=== PATIENT | female | born 1955 | race Caucasian/White ===

== ENCOUNTER 2016-12-01 11:05 | Day surgery (SDC) | payer BC, MEDICAID ==
[~2016-12-01] VITALS: Ht 162.6 cm; Wt 96.4 kg
[~2016-12-01 11:05] MED LIST: ADVAIR HFA 230-12 GM INH; AMBIEN5 MG PO; AVANDIA8 MG PO; BUSPIRONE HCL30 MG PO; CYMBALTA60 MG PO; GLUCOPHAGE1000 MG PO; LEVAQUIN500 MG PO; LEVEMIR100 U/M1 SC; LOTENSIN5 MG PO; LYRICA150 MG PO; METOPROLOL TAR100 M1 PO; NEXIUM40 MG PO; NUCYNTA50 MG PO; PRAVACHOL20 MG PO; REQUIP5 MG PO; SOMA350 MG PO; VALIUM 2 MG TAB2 MG PO
[2016-12-01 14:04] LABS: HEMATOCRIT 42.4 % (36.0-48.0); HEMOGLOBIN 14.2 g/dL (12-16); MCH 28.5 pg (26.0-34.0); MCHC 33.5 g/dL (31.0-37.0); MCV 85.1 fL (80.0-100.0); RBC 4.98 10x6/uL (4.00-5.40); RDW 13.1 % (11.5-14.5); WBC 10.2 10x3/uL (4.8-10.8)
[2016-12-01 14:14] LABS: CARBON DIOXIDE 29.9 mmol/L (21.0-32.0); CREATININE - SERUM 0.9 mg/dL (0.6-1.3); POTASSIUM - SERUM 4.9 mmol/L (3.5-5.1)
[2016-12-01] MEDS ORDERED: HUMALOG 30100 UNITS/ SC (14:20)
[2016-12-01 14:26] VITALS: BP 137/99; Ht 162.6 cm; Wt 96.4 kg
--- NOTE | 2016-12-01 16:38 | NUR ---
1610- PT RECEIVED SITTING UP IN BED WITH HOB ELEVATED. VSS. AWAKE AND ALERT. FULL LIQUIDS OFFERED. 1630- PT UP OOB TO BR WITH DIARRHEA (REPORTS CROHN'S DISEASE). VOIDED WITHOUT DIFFICULTY. 1635-IV D/C'D, PT TOLERATED. CATHETER INTACT.
--- NOTE | 2016-12-01 17:37 | NUR ---
1720- DISCHARGE INSTRUCTIONS COMPLETED, PT VERBALIZED UNDERSTANDING. PAPERWORK SIGNED 1725- DISCHARGED VIA WHEELCHAIR WITH FAMILY.
--- NOTE | 2016-12-05 13:02 | OP ---
PATIENT NAME: YASMEEN HILLIARD MEDICAL RECORD: [id number] :55 LOCATION:D.OPS ADMISSION DATE: SURGEON: JAMES HEIN DO DATE OF OPERATION: 12/01/2016 PROCEDURE: EGD with biopsies. SCOPE: Olympus video gastroscope. MEDICATIONS: Propofol 160 mg IV per anesthesia. INDICATIONS: Epigastric pain, dysphagia, GERD, nausea. FINDINGS: Informed consent was given. The patient was made comfortable with the above medication. After reaching an adequate level of sedation by slow IV push, the patient was placed on her left side. The endoscope was then advanced under direct visualization through the mouth down to the level of the second portion of the duodenum. The upper, middle, and distal thirds of the esophagus appeared normal. The GE junction was widely patent. The endoscope was advanced in the stomach and retroflexed to view the cardia. There was a small sliding hiatal hernia present involving the cardia. Scope was then advanced down towards the antrum and prepyloric region. There were patchy areas of granularity and erythema consistent with possible gastritis. Random biopsies were taken from the antrum, incisura and body of the stomach and sent for histology and to rule out H. pylori. Scope was advanced down into the duodenum where the bulb and second portion of the duodenum appeared normal. The scope was then withdrawn from the patient. The patient tolerated the procedure well and there were no complications. IMPRESSION: 1. Sliding hiatal hernia. 2. Possible gastritis with biopsies taken. PLAN AND RECOMMENDATIONS: 1. Discharge home when recovery parameters are met. 2. Continue current medications. 3. Continue current diet and reflux precautions. 4. Consider gastric emptying study if ongoing nausea and epigastric pain. 5. No further workup for dysphagia as this has resolved since her thyroidectomy. TRANSINT:[id number] Voice Confirmation ID: [id number] DOCUMENT ID: [id number] JAMES HEIN DO at 1302 CC: [id number] DICTATION DATE: 12/01/16 160 PROJECT PROGRAM MANAGER: 12/01/162058 [facility] 12/01/16 [place] [id number]
== END 2016-12-01 17:25 | disposition home or self-care (01) ==
LOC: D.OPS 11:05
PROVIDERS: Anesthesiology
DX: R13.10 Dysphagia, unspecified (principal); K21.9 Gastro-esophageal reflux disease without esophagitis; K44.9 Diaphragmatic hernia without obstruction or gangrene

== ENCOUNTER → 2017-01-26 11:28 | Outpatient (CLI) | payer BC, MEDICAID ==
[2016-12-01 14:26] VITALS: BMI 36.4
[~2017-01-26 11:28] MED LIST changes: +HUMALOG 30100 UNITS/ SC
== END | disposition home or self-care (01) ==
LOC: D.NM 11:28
DX: R13.10 Dysphagia, unspecified (principal); K21.9 Gastro-esophageal reflux disease without esophagitis; R11.0 Nausea; R10.13 Epigastric pain

== ENCOUNTER → 2017-03-14 11:29 | Outpatient (CLI) | payer BC, MEDICAID ==
[2016-12-01 14:26] VITALS: BMI 36.4
[2017-03-14 12:48] LABS: ALBUMIN 3.8 g/dL (3.4-5.0); BILIRUBIN - DIRECT 0.09 mg/dL (0.00-0.30); BILIRUBIN - INDIRECT 0.15 mg/dL (0.00-1.00); BILIRUBIN - TOTAL 0.24 mg/dL (0.2-1.3); PROTEIN - SERUM 7.9 g/dL (6.4-8.2)
== END | disposition home or self-care (01) ==
LOC: D.US 11:29
PROVIDERS: Internal Medicine Gastroenterology
DX: K76.0 Fatty (change of) liver, not elsewhere classified (principal)

== ENCOUNTER 2017-04-05 11:45 | Day surgery (SDC) | payer BC, MEDICAID ==
[~2017-04-05] VITALS: Ht 162.6 cm; Wt 95.9 kg
[2017-04-05] MEDS ORDERED: NORVASC5 MG PO (12:43)
[2017-04-05] MEDS ORDERED: VITAMIN D250000 UNIT PO (12:44)
[2017-04-05] MEDS ORDERED: OYST-CAL-5001 TAB PO (12:44)
[2017-04-05] MEDS ORDERED: ZYRTEC10 MG PO (12:45)
[2017-04-05] MEDS ORDERED: ZANAFLEX4 MG PO (12:45)
[2017-04-05] MEDS ORDERED: PRAVACHOL40 MG PO (12:46)
[2017-04-05] MEDS ORDERED: NEURONTIN800 MG PO (12:47)
[2017-04-05] MEDS ORDERED: LEVOTHYROXINE75 MCG PO (12:47)
[2017-04-05] MEDS ORDERED: FUROSEMIDE40 MG PO (12:47)
[2017-04-05] MEDS ORDERED: REQUIP1 MG PO (12:47)
[2017-04-05] MEDS ORDERED: BENTYL 20 MG TA20 MG PO (12:50)
[2017-04-05] MEDS ORDERED: REGLAN5 MG PO (12:50)
[2017-04-05 12:51] VITALS: Ht 162.6 cm; Wt 95.9 kg
[2017-04-05 13:52] LABS: CALCIUM 9.2 mg/dL (8.5-10.1); CARBON DIOXIDE 26.2 mmol/L (21.0-32.0); CREATININE - SERUM 1.2 mg/dL (0.6-1.3); POTASSIUM - SERUM 4.2 mmol/L (3.5-5.1)
[2017-04-05 14:02] LABS: HEMATOCRIT 41.4 % (36.0-48.0); HEMOGLOBIN 13.9 g/dL (12-16); MCH 30.2 pg (26.0-34.0); MCHC 33.6 g/dL (31.0-37.0); MCV 89.8 fL (80.0-100.0); RBC 4.61 10x6/uL (4.00-5.40); RDW 14.4 % (11.5-14.5); WBC 8.6 10x3/uL (4.8-10.8)
--- NOTE | 2017-04-05 15:21 | NUR ---
1500 BACK FROM COLONOSCOPY. PASSED AIR. SLEEPY RESP EVEN AND NONLABORED.REPORT TO DOUGLAS LEAL.
--- NOTE | 2017-04-06 11:40 | OP ---
PATIENT NAME: YASMEEN HILLIARD MEDICAL RECORD: [id number] :55 LOCATION:D.OPS ADMISSION DATE: SURGEON: JAMES HEIN DO DATE OF OPERATION: 04/05/2017 PROCEDURE: Colonoscopy with polypectomy. INDICATIONS: Altered bowel function. SCOPE: Olympus video pediatric colonoscope. MEDICATIONS: Propofol 450 mg IV per anesthesia. WITHDRAWAL TIME: 23 minutes. ESTIMATED BLOOD LOSS: Minimal. COMPLICATIONS: None. FINDINGS: Informed consent was given. The patient was made comfortable with the above medication. After reaching an adequate level of sedation by slow IV push, the patient was placed on her left side. A digital rectal examination was performed and was normal. The endoscope was then advanced under direct visualization through the rectum to the cecum with visualization of the appendiceal orifice and ileocecal valve. The scope was slowly withdrawn and the mucosa was carefully examined. The prep quality was good in the left side of the colon, fair in the mid colon and poor to fair in the right side of the colon. Irrigation and aspiration was performed as extensively as possible, but there was still stool in the right side of the colon which would not clear with washing. There were no obvious large polyps visualized on the right side of the examination. There were 2 sub-centimeter polyps ranging in size from 6-7 mm in diameter located in the ascending colon. They were benign-appearing and sessile. They were removed in 1 piece using hot snare and completely retrieved. There was a single transverse polyp which measured approximately 8 mm in size. It was benign appearing and sessile and was removed in 1 piece and completely retrieved using hot snare. Two benign-appearing and sessile polyps were located in the descending colon. They ranged in size from 8-9 mm in diameter. They were removed in 1 piece and completely retrieved with a hot snare. In the rectal polyp, there was a single benign-appearing sessile polyp, which was likely hyperplastic. It was benign-appearing and measured approximately 4 mm in size. It was removed in 1 piece with a hot snare and completely retrieved. Retroflexion was performed in the rectum with some small nonbleeding internal hemorrhoids visualized. There was mild diverticulosis of the entire colon visualized on this examination. Scope was withdrawn from the patient. The patient tolerated the procedure well and there were no complications. IMPRESSION: 1. Multiple polyps as described above, removed using hot snares. 2. Mild diverticulosis of the entire colon. 3. Small nonbleeding internal hemorrhoids. PLAN AND RECOMMENDATIONS: 1. Discharge home when recovery parameters are met. 2. Follow up biopsy specimen results. 3. High fiber diet. OPERATIVE REPORT [id number] YASMEEN HILLIARD 4. Continue current medications. Recall colonoscopy in 3 years regarding the number and types of polyps removed on today's date. TRANSINT:[id number] Voice Confirmation ID: [id number] DOCUMENT ID: [id number] JAMES HEIN DO at 1140 CC: [id number] DICTATION DATE: 04/05/17 1450 BIOSTATISTICS TEACHER: 04/05/172054 [facility] 04/05/17 [id number] [place] [address]
== END 2017-04-05 16:35 | disposition home or self-care (01) ==
LOC: D.OPS 11:45
PROVIDERS: Anesthesiology
DX: D12.2 Benign neoplasm of ascending colon (principal); D12.3 Benign neoplasm of transverse colon; D12.4 Benign neoplasm of descending colon; K57.30 Diverticulosis of large intestine without perforation or abscess without bleeding; K64.8 Other hemorrhoids; J45.909 Unspecified asthma, uncomplicated; I10 Essential (primary) hypertension; E11.9 Type 2 diabetes mellitus without complications; K44.9 Diaphragmatic hernia without obstruction or gangrene; G47.33 Obstructive sleep apnea (adult) (pediatric); J44.9 Chronic obstructive pulmonary disease, unspecified; K50.90 Crohn's disease, unspecified, without complications; G20 Parkinson's disease; G35 Multiple sclerosis

== ENCOUNTER 2017-12-11 17:51 | Inpatient (IN) | payer BC, MEDICAID ==
[~2017-12-11] VITALS: Ht 162.6 cm; Wt 102.2 kg
--- NOTE | ~2017-12-11 | EC ---
PATIENT:YASMEEN HILLIARD DATE OF SERVICE: 12/11/17 SEX: F MEDICAL RECORD: [id number] DATE OF : 55 LOCATION:D.MS [facility] AGE OF PATIENT: 62 ADMISSION DATE: 12/11/17 REFERRING PHYSICIAN: INTERPRETING PHYSICIAN: TIO RUIZ MD ECHOCARDIOGRAM REPORT ECHO CHARGES 4 ECHO COMPLETE Date: 12/14 CLINICAL DIAGNOSIS: MITRAL REGURG ECHOCARDIOGRAPHIC MEASUREMENTS (adult normal given) AC root (d.<3.7cm) 3.6 cm LV Septum d (<1.2 cm> 1.2 cm Valve Excursion 1.5 cm LV Septum (systole) 1.5 cm Left Atria (s.<4.0cm> 3.2 cm LVPW d(<1.2cm) 1.3 cm RV (d.<2.3cm) 4.9 cm LVPW (sytole) 1.7 cm LV diastole(<5.6CM) 4.5 cm MV E-F(>70mm/sec) cm LV systole 3.4 cm LVOT Diameter 1.8 cm MV exc.(>10mm) 1.4 cm Est.ejection fraction (50-75%) % DOPPLER: LVIT cm/sec A 102 cm/sec E 94.0 cm/sec LA cm/sec RVSP 33 mmHg LVOT 121 cm/sec AOP1/2T m/s Asc. Ao 173 cm/sec RVOT 60 cm/sec RA cm/sec PA 98 cm/sec AV Gradient Peak 11.97mmHg AV Mean 6.29 mmHg AV Area 1.9 cm MV Gradient Peak 4.37 mmHg MV Mean 1.29 mmHg MV Area cm COMMENTS: Air Hammer Stripper: 2 KRISSY BAL Enrichment Specialist: 3 Dr. Painter TAPE# PACS Pericardial Effusion N DATE OF SERVICE: Adequate 2D echo, color flow and spectral Doppler, and M-mode. Borderline LVH. LV internal dimension is normal. Wall motion is normal. EF is greater than 55%. Aortic valve is tricuspid without stenosis by Doppler interrogation. Left atrium is normal at 3.2 cm. Mitral valve shows no prolapse. Mild MR. Right-sided chambers are normal. Mild TR. TRANSINT:[id number] Voice Confirmation ID: [id number] DOCUMENT ID: [id number] ECHOCARDIOGRAM REPORT [id number] YASMEEN HILLIARD TIO RUIZ MD at 0804 CC: [id number] DICTATION DATE: 12/14/17 1645 CHEMICAL EQUIPMENT SALES ENGINEER: 12/14/17 1907 ADM IN [facility] [address] [id number]
--- NOTE | ~2017-12-11 | CN ---
PATIENT NAME:PHOEBE HILLIARD MEDICAL RECORD: [id number] : 55 LOCATION:D.MS [id number] ADMIT DATE: 12/11/17 ACCOUNT: [id number] CONSULTING PHYSICIAN: TIO RUIZ MD REFERRING PHYSICIAN: AUGUSTO TURK MD DATE OF CONSULTATION: 12/13/2017 Cardiology Consultation HISTORY OF PRESENT ILLNESS: Phoebe Hilliard is a 62-year-old lady with cardiovascular history, who previously saw Dr. Bernard for leaky valve. She is admitted with chest pain, dyspnea, this has improved markedly since admission and current treatment. Cardiac enzymes are negative. ECG shows left axis, certainly no acute changes. She had been doing fairly well, but lately going through divorce after 41 years and has been under more stress and thinks her symptoms may be related to this. We are asked to see her concerning her cardiovascular status. PAST MEDICAL HISTORY: Includes: 1. History of obstructive pulmonary disease, O2 dependent. 2. Parkinson disease. 3. Multiple sclerosis. 4. 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 SOCIAL HISTORY: She is nonsmoker, nondrinker. Lives independently. Recently divorce. She is able to take care of her ADLs. MEDICATIONS: Prior to admit include Zyrtec 10 every day, Bentyl 20 t.i.d., Zanaflex 4 b.i.d., benazepril 40 every day, metoprolol 100 q.h.s., pravastatin 40 every day, amlodipine 5 every day, Valium 10 t.i.d. p.r.n., Lexapro 10 every day, Neurontin 800 t.i.d., [place] 5/325 as needed, Requip 1 q.h.s., Nucynta 50 q.h.s., Lasix 40 every day, Reglan 5 every day, insulin per scale. ALLERGIES: PENICILLIN, SULFA, LATEX, ASPIRIN, PSEUDOEPHEDRINE. REVIEW OF SYSTEMS: The patient reports easy bruising but reports no swollen glands. The patient reports no fever, no night sweats, no significant weight gain, no significant weight loss. No significant exercise tolerance. The patient reports no dry eyes, no irritation, no vision change. Patient reports no difficulty hearing and no ear pain. Patient reports no frequent nose bleeds or nose and sinus problems. Patient reports on arm pain on exertion. No shortness of breath while lying down. No history of heart murmur. Patient reports no cough, no wheezing or coughing up blood. Patient reports no abdominal pain, no vomiting. Normal appetite. No diarrhea and not vomiting blood. No nausea and no constipation. Patient reports no incontinence. No difficulty urinating. No hematuria. No increased frequency. Patient reports no muscle aches. No weakness, no arthralgias, no back pain. No swelling of the extremities. Patient reports no abnormal mole, no jaundice, no rashes. Reports no loss of consciousness. No weakness and no numbness. No seizures, dizziness, or headaches. The patient reports no depression, no sleep disturbance, feeling safe in a relationship and no alcohol abuse. Patient reports on fatigue. Reports no runny nose or sinus pressure. No itching, no hives, and no frequent sneezing. PHYSICAL EXAMINATION: CONSULT REPORT [id number] HILLIARDLAYA MCLEANEmma Christie GENERAL: Please female in no acute distress, obvious tremor at rest. VITAL SIGNS: Blood pressure 156/97, pulse 86 and regular. HEENT: Normocephalic, atraumatic. NECK: No bruits noted. HEART: Regular, II/ systolic ejection murmur. LUNGS: Good air excursion. ABDOMEN: Soft, nontender. EXTREMITIES: Pulses are 2+ with no edema. DIAGNOSTIC DATA: ECG shows left axis, no acute ST-T changes. IMPRESSION: Chest pain may be secondary to underlying current illness. Enzymes negative at this point. We will check echo study given history of valvular dysfunction, although murmur does not sound significantly pathologic. Further recommendations based on clinical course. TRANSINT:[id number] Voice Confirmation ID: [id number] DOCUMENT ID: [id number] TIO RUIZ MD at 0804 CC: [id number] DICTATION DATE: 12/13/17 1323 PER DIEM NURSE: 12/13/17 1448 ADM IN [id number] [place] [address]
[~2017-12-11 17:51] MED LIST changes: +BENTYL 20 MG TA20 MG PO; +FUROSEMIDE40 MG PO; +LEVOTHYROXINE75 MCG PO; +NEURONTIN800 MG PO; +NORVASC5 MG PO; +OYST-CAL-5001 TAB PO; +PRAVACHOL40 MG PO; +REGLAN5 MG PO; +REQUIP1 MG PO; +VITAMIN D250000 UNIT PO; +ZANAFLEX4 MG PO; +ZYRTEC10 MG PO
[2017-12-11 19:15] LABS: BASOPHILS 0.5 % (0-2); HEMATOCRIT 39.5 % (36.0-48.0); HEMOGLOBIN 13.2 g/dL (12-16); IMMATURE GRANULOCYTES 0.5 % (0-5); LYMPHOCYTES 27.4 % (15-50); MCH 29.7 pg (26.0-34.0); MCHC 33.4 g/dL (31.0-37.0); MEAN PLATELET VOLUME 11.6 fL (7.4-10.4); MONOCYTES 5.6 % (2-11); PLATELET COUNT 170 10x3/uL (130-400); RBC 4.44 10x6/uL (4.00-5.40); RDW 14.1 % (11.5-14.5); WBC 9.1 10x3/uL (4.8-10.8)
[2017-12-11 19:38] LABS: ALBUMIN 3.4 g/dL (3.4-5.0); ALKALINE PHOSPHATASE 106 U/L (46-116); ALT (SGPT) 37 U/L (10-68); BILIRUBIN - TOTAL 0.17 mg/dL (0.2-1.3); CALCIUM 8.8 mg/dL (8.5-10.1); CARBON DIOXIDE 24.4 mmol/L (21.0-32.0); CHLORIDE - SERUM 102 mmol/L (98-107); CREATININE - SERUM 1.2 mg/dL (0.6-1.3); POTASSIUM - SERUM 3.7 mmol/L (3.5-5.1); PROTEIN - SERUM 8.1 g/dL (6.4-8.2); SODIUM 140 mmol/L (136-145); UREA NITROGEN 16 mg/dL (7-18); eGFR NON AFRICAN AMERICAN 48 mL/min (90-120)
[2017-12-11 19:50] LABS: CALC OSMOLALITY 283 mosm/kg (275-300); CKMB 0.3 U/L (0.0-3.6); CREATINE KINASE 218 UL (21-215); GLUCOSE 176 mg/dL (74-106); MAGNESIUM - SERUM 1.6 mg/dL (1.8-2.4); TROPONIN-I < 0.017 ng/mL (0.000-0.060)
[2017-12-11 20:34] LABS: APPEARANCE HAZY (CLEAR); BILIRUBIN NEGATIVE (NEGATIVE); COLOR YELLOW (YELLOW); GLUCOSE NEGATIVE (NEGATIVE); KETONE NEGATIVE (NEGATIVE); NITRITE NEGATIVE (NEGATIVE); PROTEIN NEGATIVE (NEGATIVE); RED CELLS - URINE 0-5 /hpf (0-5); UROBILINOGEN NORMAL (NORMAL); WHITE CELLS - URINE 25-50 /hpf (0-5)
[2017-12-11 20:35] LABS: BACTERIA MANY /hpf (NONE SEEN); EPITHELIAL CELLS 0-5 /hpf (0-5)
[2017-12-11 22:09] LABS: CREATINE KINASE 191 UL (21-215); TROPONIN-I < 0.017 ng/mL (0.000-0.060)
[2017-12-12] MEDS ORDERED: METOPROLOL TART50 MG PO (01:35)
[2017-12-12] MEDS ORDERED: [UNRECOGNIZED DRUG - OTHER] PO (01:40)
[2017-12-12] MEDS ORDERED: VIT D PO (01:40)
[2017-12-12] MEDS ORDERED: LEVEMIR100 U/M1 SC (01:47)
[2017-12-12] MEDS ORDERED: NOVOLOG100 U/M1 SC (01:49)
[2017-12-12] MEDS ORDERED: VALIUM10 MG PO (01:50)
[2017-12-12] MEDS ORDERED: LEXAPRO20 MG PO (01:51)
[2017-12-12] MEDS ORDERED: NUCYNTA50 MG PO (01:52)
[2017-12-12] MEDS ORDERED: HYDROCODON-ACE1 EAC7 PO (01:53)
[2017-12-12] MEDS ORDERED: AMITIZA8 MCG PO (01:53)
[2017-12-12] MEDS ORDERED: FLUTICASONE PRO16 GM NASAL (01:54)
[2017-12-12] MEDS ORDERED: NORVASC5 MG PO (01:54)
[2017-12-12] MEDS ORDERED: VOLTAREN100 GM TOPICAL (01:56)
[2017-12-12] MEDS ORDERED: PREMARIN45 GM VG (01:57)
[2017-12-12 04:31] VITALS: BP 108/58
[2017-12-12 05:03] LABS: BASOPHILS 0.5 % (0-2); EOSINOPHILS 2.2 % (0-7); HEMATOCRIT 34.9 % (36.0-48.0); HEMOGLOBIN 11.4 g/dL (12-16); IMMATURE GRANULOCYTES 0.6 % (0-5); LYMPHOCYTES 36.1 % (15-50); MCH 29.3 pg (26.0-34.0); MCHC 32.7 g/dL (31.0-37.0); MCV 89.7 fL (80.0-100.0); MEAN PLATELET VOLUME 11.5 fL (7.4-10.4); MONOCYTES 4.5 % (2-11); NEUTROPHILS 56.1 % (40-80); PLATELET COUNT 138 10x3/uL (130-400); RBC 3.89 10x6/uL (4.00-5.40); RDW 14.2 % (11.5-14.5)
[2017-12-12 05:09] LABS: WBC 6.5 10x3/uL (4.8-10.8)
[2017-12-12 05:31] LABS: CALC OSMOLALITY 289 mosm/kg (275-300); CALCIUM 8.4 mg/dL (8.5-10.1); CARBON DIOXIDE 28.4 mmol/L (21.0-32.0); CHLORIDE - SERUM 104 mmol/L (98-107); CKMB 0.2 U/L (0.0-3.6); CREATINE KINASE 155 UL (21-215); GLUCOSE 190 mg/dL (74-106); POTASSIUM - SERUM 3.9 mmol/L (3.5-5.1); SODIUM 142 mmol/L (136-145); UREA NITROGEN 18 mg/dL (7-18); eGFR NON AFRICAN AMERICAN 59 mL/min (90-120)
[2017-12-12 05:37] LABS: TROPONIN-I < 0.017 ng/mL (0.000-0.060)
[2017-12-12 07:45] VITALS: BP 135/81; BMI 37.4
[2017-12-12 08:10] VITALS: BP 129/80
[2017-12-12 09:41] LABS: CKMB 0.6 U/L (0.0-3.6); CREATINE KINASE 148 UL (21-215)
[2017-12-12 09:42] LABS: TROPONIN-I < 0.017 ng/mL (0.000-0.060)
[2017-12-12 11:41] VITALS: BP 143/93
[2017-12-12 12:54] VITALS: Ht 162.6 cm; Wt 102.2 kg
[2017-12-12 16:08] VITALS: BP 143/82
[2017-12-12 20:00] VITALS: BP 128/79
[2017-12-13 04:00] VITALS: BP 122/68
[2017-12-13 06:16] LABS: BASOPHILS 0.8 % (0-2); EOSINOPHILS 2.6 % (0-7); HEMATOCRIT 32.7 % (36.0-48.0); HEMOGLOBIN 10.7 g/dL (12-16); IMMATURE GRANULOCYTES 0.8 % (0-5); LYMPHOCYTES 34.7 % (15-50); MCH 29.3 pg (26.0-34.0); MCHC 32.7 g/dL (31.0-37.0); MCV 89.6 fL (80.0-100.0); MONOCYTES 5.2 % (2-11); NEUTROPHILS 55.9 % (40-80); PLATELET COUNT 106 10x3/uL (130-400); RBC 3.65 10x6/uL (4.00-5.40)
[2017-12-13 06:40] LABS: ALBUMIN 2.7 g/dL (3.4-5.0); ALKALINE PHOSPHATASE 69 U/L (46-116); ALT (SGPT) 32 U/L (10-68); BILIRUBIN - TOTAL 0.23 mg/dL (0.2-1.3); CALC OSMOLALITY 282 mosm/kg (275-300); CALCIUM 8.2 mg/dL (8.5-10.1); CARBON DIOXIDE 26.8 mmol/L (21.0-32.0); CHLORIDE - SERUM 104 mmol/L (98-107); CREATININE - SERUM 0.8 mg/dL (0.6-1.3); GLUCOSE 153 mg/dL (74-106); POTASSIUM - SERUM 3.7 mmol/L (3.5-5.1); PROTEIN - SERUM 6.6 g/dL (6.4-8.2); SODIUM 141 mmol/L (136-145); eGFR NON AFRICAN AMERICAN 77 mL/min (90-120)
[2017-12-13 06:41] LABS: UREA NITROGEN 11 mg/dL (7-18)
[2017-12-13 09:21] VITALS: BP 154/98
[2017-12-13 12:31] VITALS: BP 156/97
[2017-12-13 16:53] VITALS: BP 143/90
[2017-12-13 20:00] VITALS: BP 139/74
[2017-12-14] VITALS: BP 136/72
[2017-12-14 04:00] VITALS: BP 133/76
[2017-12-14 05:55] LABS: BASOPHILS 0.5 % (0-2); EOSINOPHILS 2.7 % (0-7); HEMATOCRIT 32.1 % (36.0-48.0); HEMOGLOBIN 10.6 g/dL (12-16); LYMPHOCYTES 30.7 % (15-50); MCH 29.5 pg (26.0-34.0); MCV 89.4 fL (80.0-100.0); MEAN PLATELET VOLUME 10.8 fL (7.4-10.4); MONOCYTES 5.3 % (2-11); NEUTROPHILS 59.8 % (40-80); PLATELET COUNT 103 10x3/uL (130-400); RBC 3.59 10x6/uL (4.00-5.40); RDW 14.2 % (11.5-14.5); WBC 5.8 10x3/uL (4.8-10.8)
[2017-12-14 06:23] LABS: ALBUMIN 2.8 g/dL (3.4-5.0); ANION GAP 11.7 mmol/L (8-16); BILIRUBIN - TOTAL 0.2 mg/dL (0.2-1.3); CALCIUM 8.1 mg/dL (8.5-10.1); CREATININE - SERUM 0.9 mg/dL (0.6-1.3); POTASSIUM - SERUM 3.7 mmol/L (3.5-5.1); PROTEIN - SERUM 6.5 g/dL (6.4-8.2)
[2017-12-14 07:51] VITALS: BP 171/98
[2017-12-14 12:24] VITALS: BP 134/83
[2017-12-14 15:57] VITALS: BP 148/70; BP 148/90
[2017-12-14 19:36] VITALS: BP 143/85
[2017-12-15] VITALS: BP 133/82
[2017-12-15 04:00] VITALS: BP 126/77
[2017-12-15 06:20] LABS: BASOPHILS 0.7 % (0-2); EOSINOPHILS 2.8 % (0-7); HEMATOCRIT 34.1 % (36.0-48.0); HEMOGLOBIN 11.3 g/dL (12-16); IMMATURE GRANULOCYTES 0.9 % (0-5); LYMPHOCYTES 27.8 % (15-50); MCH 29.9 pg (26.0-34.0); MCHC 33.1 g/dL (31.0-37.0); MCV 90.2 fL (80.0-100.0); MEAN PLATELET VOLUME 11.8 fL (7.4-10.4); MONOCYTES 4.4 % (2-11); NEUTROPHILS 63.4 % (40-80); PLATELET COUNT 120 10x3/uL (130-400); RBC 3.78 10x6/uL (4.00-5.40); RDW 14.3 % (11.5-14.5); WBC 5.7 10x3/uL (4.8-10.8)
[2017-12-15 06:51] LABS: ALBUMIN 2.9 g/dL (3.4-5.0); ANION GAP 10.2 mmol/L (8-16); BILIRUBIN - TOTAL 0.2 mg/dL (0.2-1.3); CALCIUM 8.2 mg/dL (8.5-10.1); CARBON DIOXIDE 32.3 mmol/L (21.0-32.0); CREATININE - SERUM 0.9 mg/dL (0.6-1.3); POTASSIUM - SERUM 3.5 mmol/L (3.5-5.1); PROTEIN - SERUM 6.8 g/dL (6.4-8.2)
[2017-12-15 08:18] VITALS: BP 144/84
[2017-12-15 16:11] LABS: APPEARANCE CLEAR (CLEAR); BILIRUBIN NEGATIVE (NEGATIVE); COLOR YELLOW (YELLOW); GLUCOSE 100 mg/dL (NEGATIVE); KETONE NEGATIVE (NEGATIVE); NITRITE NEGATIVE (NEGATIVE); PROTEIN NEGATIVE (NEGATIVE); SPECIFIC GRAVITY 1.015 (1.005-1.020); UROBILINOGEN NORMAL (NORMAL)
[2017-12-15 16:13] LABS: EPITHELIAL CELLS 0-5 /hpf (0-5); RED CELLS - URINE 0-5 /hpf (0-5)
[2017-12-15 16:14] LABS: BACTERIA FEW /hpf (NONE SEEN); WHITE CELLS - URINE 0-5 /hpf (0-5)
[2017-12-15 19:57] VITALS: BP 123/70
[2017-12-16] VITALS: BP 117/71
[2017-12-16 04:00] VITALS: BP 136/62
[2017-12-16 05:42] LABS: BASOPHILS 0.5 % (0-2); EOSINOPHILS 2.8 % (0-7); HEMATOCRIT 35.1 % (36.0-48.0); HEMOGLOBIN 11.3 g/dL (12-16); IMMATURE GRANULOCYTES 0.9 % (0-5); LYMPHOCYTES 26.1 % (15-50); MCH 29.1 pg (26.0-34.0); MCHC 32.2 g/dL (31.0-37.0); MCV 90.5 fL (80.0-100.0); MEAN PLATELET VOLUME 11.3 fL (7.4-10.4); MONOCYTES 6.4 % (2-11); NEUTROPHILS 63.3 % (40-80); PLATELET COUNT 123 10x3/uL (130-400); RBC 3.88 10x6/uL (4.00-5.40); RDW 14.6 % (11.5-14.5); WBC 5.6 10x3/uL (4.8-10.8)
[2017-12-16 06:32] LABS: ANION GAP 11.9 mmol/L (8-16); BILIRUBIN - TOTAL 0.2 mg/dL (0.2-1.3); CALCIUM 8.2 mg/dL (8.5-10.1); CREATININE - SERUM 0.9 mg/dL (0.6-1.3); POTASSIUM - SERUM 3.9 mmol/L (3.5-5.1); PROTEIN - SERUM 6.6 g/dL (6.4-8.2)
[2017-12-16 09:30] VITALS: BP 159/85
[2017-12-16] MEDS ORDERED: LEVAQUIN750 MG PO (11:37)
== END 2017-12-16 16:00 | disposition home or self-care (01) | DRG 190 ==
LOC: D.ER 17:51 → D.MS 21:15 → D.EDHOLD 21:15 → D.MS 12-12 00:19
PROVIDERS: Family Medicine
DX: J44.0 Chronic obstructive pulmonary disease with (acute) lower respiratory infection (principal); J18.1 Lobar pneumonia, unspecified organism; N39.0 Urinary tract infection, site not specified; M35.1 Other overlap syndromes; K50.90 Crohn's disease, unspecified, without complications; J44.1 Chronic obstructive pulmonary disease with (acute) exacerbation; R53.1 Weakness; E11.43 Type 2 diabetes mellitus with diabetic autonomic (poly)neuropathy; E11.65 Type 2 diabetes mellitus with hyperglycemia; K31.84 Gastroparesis; Z79.4 Long term (current) use of insulin; G35 Multiple sclerosis; Z99.81 Dependence on supplemental oxygen; K21.9 Gastro-esophageal reflux disease without esophagitis; R07.9 Chest pain, unspecified; I25.10 Atherosclerotic heart disease of native coronary artery without angina pectoris

== ENCOUNTER 2017-12-23 17:40 | Emergency (ER) | payer BC, MEDICAID ==
[2017-12-12 12:54] VITALS: BMI 37.2
[~2017-12-23 17:40] MED LIST changes: +AMITIZA8 MCG PO; +FLUTICASONE PRO16 GM NASAL; +HYDROCODON-ACE1 EAC7 PO; +LEVAQUIN750 MG PO; +LEXAPRO20 MG PO; +METOPROLOL TART50 MG PO; +NOVOLOG100 U/M1 SC; +PREMARIN45 GM VG; +VALIUM10 MG PO; +VIT D PO; +VOLTAREN100 GM TOPICAL; +[UNRECOGNIZED DRUG - OTHER] PO
== END 2017-12-23 19:00 | disposition home or self-care (01) ==
LOC: D.ER 17:40
DX: S90.462A Insect bite (nonvenomous), left great toe, initial encounter (principal); W57.XXXA Bitten or stung by nonvenomous insect and other nonvenomous arthropods, initial encounter; Y93.89 Activity, other specified; Y92.89 Other specified places as the place of occurrence of the external cause

== ENCOUNTER 2018-02-08 18:38 | Emergency (ER) | payer BC, MEDICAID ==
[~2018-02-08] VITALS: Ht 162.6 cm; Wt 94.5 kg
[2018-02-08 19:29] VITALS: Ht 162.6 cm; Wt 94.5 kg
[2018-02-08 20:49] LABS: BASOPHILS 0.8 % (0-2); HEMATOCRIT 38.3 % (36.0-48.0); IMMATURE GRANULOCYTES 0.7 % (0-5); LYMPHOCYTES 34.1 % (15-50); MCH 30.2 pg (26.0-34.0); MCHC 33.9 g/dL (31.0-37.0); MCV 88.9 fL (80.0-100.0); MEAN PLATELET VOLUME 12.8 fL (7.4-10.4); MONOCYTES 4.5 % (2-11); NEUTROPHILS 57.9 % (40-80); RBC 4.31 10x6/uL (4.00-5.40); RDW 13.8 % (11.5-14.5); WBC 7.4 10x3/uL (4.8-10.8)
[2018-02-08 20:56] LABS: PLATELET COUNT 160 10x3/uL (130-400)
[2018-02-08 21:04] LABS: APTT 30.4 SECONDS (22.8-39.4); INR 1.03 (0.85-1.17); PROTIME 13.2 SECONDS (11.6-15.0)
[2018-02-08 21:11] LABS: ALBUMIN 3.6 g/dL (3.4-5.0); ALKALINE PHOSPHATASE 102 U/L (46-116); ALT (SGPT) 33 U/L (10-68); BILIRUBIN - TOTAL 0.24 mg/dL (0.2-1.3); CALC OSMOLALITY 286 mosm/kg (275-300); CALCIUM 8.1 mg/dL (8.5-10.1); CARBON DIOXIDE 26.9 mmol/L (21.0-32.0); CHLORIDE - SERUM 101 mmol/L (98-107); POTASSIUM - SERUM 3.7 mmol/L (3.5-5.1); SODIUM 137 mmol/L (136-145); UREA NITROGEN 12 mg/dL (7-18); eGFR NON AFRICAN AMERICAN 59 mL/min (90-120)
[2018-02-08 21:14] LABS: CREATINE KINASE 63 UL (21-215); TROPONIN-I < 0.017 ng/mL (0.000-0.060)
[2018-02-08 21:15] LABS: GLUCOSE 324 mg/dL (74-106)
[2018-02-08 21:35] LABS: APPEARANCE CLOUDY (CLEAR); BILIRUBIN NEGATIVE (NEGATIVE); COLOR YELLOW (YELLOW); GLUCOSE 1000 mg/dL (NEGATIVE); KETONE NEGATIVE (NEGATIVE); NITRITE POSITIVE (NEGATIVE); PROTEIN NEGATIVE (NEGATIVE); UROBILINOGEN NORMAL (NORMAL)
[2018-02-08 21:36] LABS: BACTERIA MANY /hpf (NONE SEEN); EPITHELIAL CELLS 0-5 /hpf (0-5); RED CELLS - URINE OCC /hpf (0-5)
[2018-02-09 00:55] VITALS: BP 145/93
== END 2018-02-09 00:55 | disposition other institution (70) ==
LOC: D.ER 18:38
PROVIDERS: Family Medicine
DX: G81.91 Hemiplegia, unspecified affecting right dominant side (principal); R47.81 Slurred speech; E11.9 Type 2 diabetes mellitus without complications; I10 Essential (primary) hypertension; G20 Parkinson's disease; G35 Multiple sclerosis

== ENCOUNTER 2019-10-10 01:37 | Emergency (ER) | payer BC, MEDICAID ==
[~2019-10-10] VITALS: Ht 162.6 cm; Wt 79.5 kg
[2019-10-10 01:43] VITALS: Ht 162.6 cm; Wt 79.5 kg
[2019-10-10 02:06] LABS: BASOPHILS 0.6 % (0-2); EOSINOPHILS 2.1 % (0-7); HEMATOCRIT 40.2 % (36.0-48.0); HEMOGLOBIN 13.6 g/dL (12-16); IMMATURE GRANULOCYTES 0.6 % (0-5); LYMPHOCYTES 32.5 % (15-50); MCH 28.3 pg (26.0-34.0); MCHC 33.8 g/dL (31.0-37.0); MCV 83.8 fL (80.0-100.0); MEAN PLATELET VOLUME 11.6 fL (7.4-10.4); MONOCYTES 4.6 % (2-11); NEUTROPHILS 59.6 % (40-80); PLATELET COUNT 191 10x3/uL (130-400); RDW 13.6 % (11.5-14.5); WBC 7.9 10x3/uL (4.8-10.8)
[2019-10-10 02:13] LABS: APTT 31.3 SECONDS (22.8-39.4); INR 1.13 (0.85-1.17); PROTIME 14.5 SECONDS (11.6-15.0)
[2019-10-10] MEDS ORDERED: PLAVIX75 MG PO (02:25)
[2019-10-10] MEDS ORDERED: LIPITOR40 MG PO (02:25)
[2019-10-10] MEDS ORDERED: PROTONIX40 MG PO (02:26)
[2019-10-10 02:28] LABS: ALBUMIN 3.3 g/dL (3.4-5.0); ALKALINE PHOSPHATASE 121 U/L (30-120); ALT (SGPT) 34 U/L (10-68); BILIRUBIN - TOTAL 0.58 mg/dL (0.2-1.3); CALCIUM 9.2 mg/dL (8.5-10.1); CARBON DIOXIDE 30.2 mmol/L (21.0-32.0); CHLORIDE - SERUM 98 mmol/L (98-107); CKMB 0.4 U/L (0.0-3.6); CREATINE KINASE 86 UL (21-215); CREATININE - SERUM 1.3 mg/dL (0.6-1.3); MAGNESIUM - SERUM 1.9 mg/dL (1.8-2.4); POTASSIUM - SERUM 3.4 mmol/L (3.5-5.1); PROTEIN - SERUM 8.3 g/dL (6.4-8.2); SODIUM 137 mmol/L (136-145); UREA NITROGEN 12 mg/dL (7-18); eGFR NON AFRICAN AMERICAN 44 mL/min (90-120)
[2019-10-10 02:30] LABS: CALC OSMOLALITY 293 mosm/kg (275-300); GLUCOSE 453 mg/dL (74-106); TROPONIN-I < 0.017 ng/mL (0.000-0.060)
[2019-10-10 05:15] VITALS: BP 128/90
== END 2019-10-10 05:15 | disposition home or self-care (01) ==
LOC: D.ER 01:37
PROVIDERS: Family Medicine
DX: E11.65 Type 2 diabetes mellitus with hyperglycemia (principal); Z91.19 Patient's noncompliance with other medical treatment and regimen; E11.40 Type 2 diabetes mellitus with diabetic neuropathy, unspecified; G20 Parkinson's disease; G35 Multiple sclerosis; I10 Essential (primary) hypertension; J44.9 Chronic obstructive pulmonary disease, unspecified; Z99.81 Dependence on supplemental oxygen; Z79.4 Long term (current) use of insulin